=== PATIENT | female | born 1980 | race Two or more races ===

== ENCOUNTER 2018-05-01 12:06 | Emergency (ER) | payer MEDICAID ==
[~2018-05-01] VITALS: Ht 167.6 cm; Wt 71.7 kg
[2018-05-01] MEDS ORDERED: ACETAMINOPHEN 325 MG TAB PO ONE (13:00)
[2018-05-01 13:05] LABS: Urine Bacteria NONE SEEN /hpf (None Seen); Urine Blood TRACE /uL (Negative); Urine Specific Gravity 1.009 (1.001-1.035); Urine WBC 1 /hpf (0 - 5)
[2018-05-01 14:32] VITALS: BP 130/79
== END 2018-05-01 14:46 | disposition home or self-care (01) ==
LOC: ER 12:06
DX: R51 Headache (principal); Z88.8 Allergy status to other drugs, medicaments and biological substances
CPT/HCPCS: 70450; 81001; 81025

== ENCOUNTER 2018-12-13 04:56 | Inpatient (IN) | payer MEDICAID ==
[~2018-12-13] VITALS: Ht 165.1 cm; Wt 76.6 kg
[2018-12-13] MEDS ORDERED: ACETAMINOPHEN 500 MG TAB PO ONE (05:45)
[2018-12-13] MEDS ORDERED: SODIUM CHLORIDE 0.9% 2,300 ML IV ONE (05:45)
[2018-12-13 06:27] LABS: Basophils # (auto) 0 uL; Basophils % (auto) 0.2 % (0.0-2.0); Eosinophils # (auto) 0 uL; Eosinophils % (auto) 0.2 % (0.0-7.0); Hematocrit 38.1 % (36.0-46.0); Hemoglobin 13.2 g/dL (12.2-16.2); Lymphocytes # (auto) 0.9 uL; Lymphocytes % (auto) 11.3 % (10.0-50.0); Mean Corpuscular Hemoglobin 30.1 pg (28.0-32.0); Mean Corpuscular Hgb Conc. 34.5 g/dL (32.0-36.0); Mean Corpuscular Volume 87.3 fL (80.0-100.0); Monocytes # (auto) 0.3 uL; Monocytes % (auto) 3.5 % (0.0-12.0); Neutrophils # (auto) 6.7 uL; Neutrophils % (auto) 84.8 % (37.0-80.0); Nucleated Red Blood Cells % 0.2 %; Platelet Count (auto) 179 10^3/uL (140-450); Red Blood Cells 4.36 10^6/uL (4.0-5.20); Red Cell Distribution Width 12.8 % (11.8-14.3); White Blood Cell 7.8 10^3/uL (4.4-10.8)
[2018-12-13 06:29] LABS: Albumin 3.6 g/dL (3.4-5.0); Anion Gap 11 (5-15); Blood Urea Nitrogen 14 mg/dL (7-18); Calcium 8.4 mg/dL (8.5-10.1); Carbon Dioxide 25 mmol/L (21-32); Chloride 109 mmol/L (98-107); Glucose 119 mg/dL (74-106); Potassium 3.6 mmol/L (3.5-5.1); Sodium 145 mmol/L (136-145)
[2018-12-13 06:30] LABS: Alanine Aminotransferase 28 U/L (13-56); Aspartate Aminotransferase 33 U/L (15-37); BUN/Creatinine Ratio 14.9; GFR African American 86 mL/min; GFR Non-African American 71 mL/min; Lactic Acid w/Reflex 2.5 mmol/L (0.4-2.0)
[2018-12-13 06:31] LABS: INR 0.99 (0.9-1.15); Partial Thromboplastin Time 21.7 sec (23.64-32.05)
[2018-12-13 06:35] LABS: Alkaline Phosphatase 68 U/L (45-117); Bilirubin, Total 0.8 mg/dL (0.2-1.0); Total Protein 7.1 g/dL (6.4-8.2)
[2018-12-13 07:44] LABS: Urine WBC None Seen /hpf (0 - 5)
[2018-12-13] MEDS ORDERED: SODIUM CHLORIDE 0.9% 2,000 ML IV ONE (07:45)
[2018-12-13 08:06] LABS: Urine Bacteria NONE SEEN /hpf (None Seen); Urine Blood Negative /uL (Negative); Urine Specific Gravity 1.011 (1.001-1.035)
[2018-12-13] MEDS ORDERED: IOHEXOL 300 MG/ML 100ML BOTTLE IJ ONE (08:56)
[2018-12-13] MEDS ORDERED: SODIUM CHLORIDE 0.9% 1,000 ML IV ONE ×2 (13:30→14:30)
[2018-12-13] MEDS ORDERED: LEVOFLOXACIN 500MG 100 ML IV ONE (14:15)
[2018-12-13] MEDS ORDERED: VANCOMYCIN 1GM/250ML 250 ML IV ONE (14:30)
[2018-12-13] MEDS ORDERED: VANCOMYCIN PER PHARMACY 0 MG IV SCH (14:30)
[2018-12-13 15:12] LABS: Beta HCG, Quantitative < 1 mlU/mL (1-3); Thyroid Stimulating Hormone 1.13 uIU/mL (0.358-3.74)
[2018-12-13] MEDS ORDERED: ONDANSETRON HCL 4 MG/2 ML VIAL ONE (15:36)
[2018-12-13] MEDS: ONDANSETRON HCL 4 MG/2 ML VIAL IV PRN ×2 (15:38→23:03)
[2018-12-13] MEDS: HYDROcodone-ACET 5/325MG TAB PO PRN ×2 (16:46→23:03)
[2018-12-13] MEDS ORDERED: MORPHINE SULF INJ 2 MG/ML SYRINGE 1ML IV PRN (17:30)
[2018-12-13] MEDS ORDERED: NITROGLYCERIN 0.4 MG SL TAB SL PRN (17:30)
--- NOTE | 2018-12-13 19:04 | NUR ---
Telemetry admit from JOSE DAVID SALINASRAYMUNDO S admitted to Telemetry unit after SBAR received. Patient oriented to Sloane Adams, primary RN,room [address] and unit policies regarding patient care and visiting hours. Patient now on continuous telemetry monitoring, tele box #31 and telemetry reading on arrival to unit is SR 82. Patient a/o x4, currently no pain reported, no SOB or distress. Weighed by bedscale and encouraged to call if they need something. All questions and concerns addressed, patient verbalized understanding.
--- NOTE | 2018-12-13 19:20 | NUR ---
Opening Shift Note Received report from day shift RN. Assumed care of patient. Patient awake and alert, at bed side. No S/S of distress/SOB, patient verbalized headache as 6/10 level. Will assess, medicated per orders, and reassess pain as indicated. Call light with in reach. Instructed on POC and to call for assist PRN, will continue to monitor PRN.
[2018-12-13 20:00] VITALS: BP 106/69
[2018-12-13] MEDS: ACETAMINOPHEN 325 MG TAB PO PRN (20:48)
--- NOTE | 2018-12-13 21:00 | NUR ---
WARM COMPRESSES APPLIED ON LEFT BREAST. BREAST ENGORGED AND TENTED TO TOUCH. EDUCATED PATIENT ON PAIN AND ENGORGEMENT RELIEF. WILL CONTINUE TO MONITOR.
[2018-12-13 22:00] VITALS: BP_SYST 106; BP_SYST 97; BP_DIAS 57; BP_DIAS 69
[2018-12-14] MEDS: VANCOMYCIN 1GM/250ML 250 ML IV SCH ×2 (02:47→14:29)
[2018-12-14 05:00] VITALS: BP 102/55
[2018-12-14 06:13] LABS: Basophils # (auto) 0 uL; Basophils % (auto) 0.1 % (0.0-2.0); Eosinophils # (auto) 0.1 uL; Eosinophils % (auto) 0.9 % (0.0-7.0); Hematocrit 35.5 % (36.0-46.0); Hemoglobin 12.4 g/dL (12.2-16.2); Lymphocytes # (auto) 1.5 uL; Lymphocytes % (auto) 12.9 % (10.0-50.0); Mean Corpuscular Hemoglobin 30.8 pg (28.0-32.0); Mean Corpuscular Volume 87.9 fL (80.0-100.0); Monocytes # (auto) 0.5 uL; Monocytes % (auto) 4.5 % (0.0-12.0); Neutrophils # (auto) 9.4 uL; Neutrophils % (auto) 81.6 % (37.0-80.0); Platelet Count (auto) 163 10^3/uL (140-450); Red Blood Cells 4.03 10^6/uL (4.0-5.20); Red Cell Distribution Width 13.2 % (11.8-14.3); White Blood Cell 11.5 10^3/uL (4.4-10.8)
--- NOTE | 2018-12-14 06:25 | NUR ---
ROUNDS PATIENT RESTING IN BED WITH EYES CLOSED, NO S/S OF PAIN OR DISCOMFORT, BREATHING NON LABORED AND EQUAL RESPIRATIONS AT 76BPM, SATURATING AT 97% ON ROOM AIR. CALL LIGHT WITH IN REACH.
[2018-12-14 06:26] LABS: BUN/Creatinine Ratio 9.4; Calcium 8.1 mg/dL (8.5-10.1); Potassium 3.7 mmol/L (3.5-5.1)
--- NOTE | 2018-12-14 07:30 | NUR ---
Opening Shift Note Assumed care of patient, awake and alert. No S/S of distress/SOB. Pain reported to head 02/23. Pain management options discussed with the patient. Instructed on POC and to call for assist PRN, will continue to monitor for changes Q1hr and PRN.
[2018-12-14] MEDS: HYDROcodone-ACET 5/325MG TAB PO PRN ×2 (07:52→20:15)
[2018-12-14 08:00] VITALS: BP 105/61
[2018-12-14] MEDS: SODIUM CHLORIDE 0.9% 1,000 ML IV SCH ×2 (09:15→17:21)
[2018-12-14] MEDS: PANTOPRAZOLE 40 MG TAB PO SCH (10:26)
[2018-12-14] MEDS: LEVOFLOXACIN 500MG 100 ML IV SCH (10:28)
--- NOTE | 2018-12-14 10:34 | NUR ---
Echeverria catheter dc'd Order to discontinue echeverria catheter. Echeverria dc'd with clean technique following deflation of balloon. Patient tolerated well with no complaints of pain. Continue care. 625ML OF CLEAR, ODORLESS, YELLOW URINE EMPTIED FROM ECHEVERRIA BAG.
[2018-12-14 12:00] VITALS: BP 125/72
[2018-12-14] MEDS: ACETAMINOPHEN 325 MG TAB PO PRN (12:54)
[2018-12-14] MEDS: ONDANSETRON HCL 4 MG/2 ML VIAL IV PRN (12:54)
--- NOTE | 2018-12-14 16:25 | NUR ---
IV insertion IV access obtained, via clean sterile technique by inserting 20 gauge catheter at right Forearm after 1 attempt. IV secured properly. No trauma to site. Patient tolerated well.
--- NOTE | 2018-12-14 16:30 | NUR ---
IV removal IV DC'd with clean sterile technique, catheter fully intact. Pressure dressing applied to site. Patient tolerated well. NOTE: Iv to left forearm showed signs of phlebitis. patient reported tenderness and redness in a line along the venous tract was noted.
[2018-12-14 17:00] VITALS: BP 106/66
--- NOTE | 2018-12-14 19:15 | NUR ---
Opening Shift Note Assumed care of patient, awake and alert. No S/S of distress/SOB or pain. Instructed on POC and to call for assist PRN, will continue to monitor for changes Q1hr and PRN. Side rails up x2. Bed locked in lowest position. Call light within reach. at bedside.
[2018-12-14 22:00] VITALS: BP 114/72
--- NOTE | 2018-12-15 01:26 | NUR ---
Rounds Patient in bed asleep with no signs of distress/sob/pain.
[2018-12-15] MEDS: VANCOMYCIN 1GM/250ML 250 ML IV SCH (03:32)
[2018-12-15 04:59] VITALS: BP 108/66
[2018-12-15 05:57] LABS: Basophils # (auto) 0 uL; Basophils % (auto) 0.3 % (0.0-2.0); Eosinophils # (auto) 0.2 uL; Eosinophils % (auto) 2.9 % (0.0-7.0); Hemoglobin 11.4 g/dL (12.2-16.2); Lymphocytes # (auto) 1.6 uL; Lymphocytes % (auto) 19.3 % (10.0-50.0); Mean Corpuscular Hemoglobin 30.5 pg (28.0-32.0); Mean Corpuscular Hgb Conc. 34.5 g/dL (32.0-36.0); Mean Corpuscular Volume 88.3 fL (80.0-100.0); Monocytes # (auto) 0.6 uL; Monocytes % (auto) 7.3 % (0.0-12.0); Neutrophils # (auto) 5.6 uL; Neutrophils % (auto) 70.2 % (37.0-80.0); Nucleated Red Blood Cells % 0.1 %; Platelet Count (auto) 160 10^3/uL (140-450); Red Blood Cells 3.74 10^6/uL (4.0-5.20); Red Cell Distribution Width 13.1 % (11.8-14.3)
[2018-12-15 06:11] LABS: BUN/Creatinine Ratio 11.5; Potassium 3.1 mmol/L (3.5-5.1)
--- NOTE | 2018-12-15 07:41 | NUR ---
Endorsed care to day shift RN.
[2018-12-15 08:00] VITALS: BP 110/69
[2018-12-15] MEDS: PANTOPRAZOLE 40 MG TAB PO SCH (10:07)
[2018-12-15] MEDS: LEVOFLOXACIN 500MG 100 ML IV SCH (10:08)
[2018-12-15] MEDS ORDERED: POTASSIUM CHL 20 Meq TABLET PO ONE (11:15)
[2018-12-15] MEDS: CLINDAMYCIN HCL 150 MG CAP PO SCH ×2 (11:31→14:00)
[2018-12-15] MEDS: POTASSIUM CHL 20MEQ/100ML 100 ML IV SCH ×2 (11:35→14:08)
[2018-12-15] MEDS ORDERED: CLIN150C7 PO (11:45)
[2018-12-15] MEDS ORDERED: POTASSIUM EFFERVESENT TAB 25 MEQ PO ONE (11:45)
[2018-12-15 12:00] VITALS: BP 121/71
[2018-12-15] MEDS ORDERED: VANCOMYCIN 1GM/250ML 250 ML IV SCH (12:00)
== END 2018-12-15 15:18 | disposition home or self-care (01) | DRG 385 ==
LOC: ER 04:56 → TELE 17:28 → TELE-WESTW 18:42
PROVIDERS: ADMIT Internal Medicine; ATTEND Internal Medicine
DX: N61.0 Mastitis without abscess (principal); I95.9 Hypotension, unspecified; R65.10 Systemic inflammatory response syndrome (SIRS) of non-infectious origin without acute organ dysfunction; E87.6 Hypokalemia; I10 Essential (primary) hypertension; Z90.49 Acquired absence of other specified parts of digestive tract; Z88.8 Allergy status to other drugs, medicaments and biological substances
CPT/HCPCS: 36415; 70450; 71045; 74177; 76856; 80048; 80053; 80202; 81001; 81025; 82962; 83605; 84443; 84484; 84702; 85025; 85610; 85730; 87040; 93005; 96361; 96365; 96368; 96375; G0378; J1956; J2405; J3480